=== PATIENT | male | born 1950 | race Caucasian/White ===

== ENCOUNTER 2018-04-03 10:57 | Emergency (ER) | payer MEDICAID ==
[~2018-04-03] VITALS: Ht 165.1 cm; Wt 72.0 kg
[2018-04-03 12:03] LABS: BASOPHILS % 0.4 % (0.0-2.0); EOSINOPHILS % 4.3 % (0.0-5.0); HEMOGLOBIN. 13.7 g/dL (14.0-18.0); LYMPHOCYTES % 15.8 % (20.0-50.0); MEAN CORPUSCULAR VOLUME 91.2 fL (80.0-94.0); MEAN PLATELET VOLUME 7.7 fl (7.4-10.4); MONOCYTES % 5.5 % (2.0-8.0); PLATELET 237 x1000/uL (130-400); RED BLOOD CELL COUNT 4.28 mill/uL (4.7-6.1); RED CELL DISTRIBUTION WIDTH 12.9 % (11.6-14.6)
[2018-04-03 12:05] LABS: CHLORIDE 97 mEq/L (98-107)
[2018-04-03 12:08] LABS: PARTIAL THROMBOPLASTIN TIME 26.6 sec (23.4-31.0); PROTHROMBIN TIME 10.6 sec (9.4-11.6)
[2018-04-03] MEDS ORDERED: ASPIRIN 81MG TABLET PO STA (14:06)
[2018-04-03 15:36] LABS: BASOPHILS % 0.4 % (0.0-2.0); EOSINOPHILS % 3.9 % (0.0-5.0); HEMATOCRIT. 40.6 % (42.0-52.0); HEMOGLOBIN. 14.1 g/dL (14.0-18.0); LYMPHOCYTES % 19.2 % (20.0-50.0); MEAN CORPUSCULAR HEMOGLOBIN 32.1 pg (28.0-32.0); MEAN CORPUSCULAR VOLUME 92.1 fL (80.0-94.0); MEAN PLATELET VOLUME 7.7 fl (7.4-10.4); MONOCYTES % 7.4 % (2.0-8.0); NEUTROPHILS % 69.1 % (40.0-76.0); PLATELET 233 x1000/uL (130-400); RED CELL DISTRIBUTION WIDTH 12.9 % (11.6-14.6)
[2018-04-03 15:39] LABS: CHLORIDE 99 mEq/L (98-107)
[2018-04-03 15:43] LABS: D-DIMER 0.49 mg/L FEU (<0.50); PARTIAL THROMBOPLASTIN TIME 26.8 sec (23.4-31.0); PROTHROMBIN TIME 10.5 sec (9.4-11.6)
[2018-04-03 16:35] LABS: CLARITY URINE CLEAR (CLEAR); COLOR URINE YELLOW (YELLOW); KETONES URINE NEGATIVE (NEGATIVE); LEUKOCYTE ESTERASE URINE NEGATIVE (NEGATIVE); NITRITE URINE NEGATIVE (NEGATIVE); OCCULT BLOOD URINE NEGATIVE (NEGATIVE); PROTEIN URINE NEGATIVE (NEGATIVE); SPECIFIC GRAVITY URINE 1.009 (1.005-1.030); UROBILINOGEN URINE 0.2 E.U./dL (0.2-1.0)
[2018-04-03 22:03] VITALS: BP 126/84
== END 2018-04-03 22:07 | disposition left against medical advice (07) ==
LOC: ER 12:45 → EDBEDREQ 16:38 → CANRESERV 19:31 → ENRESERV 19:31 → ER 22:07 → CANBEDREQ 04-04 01:31
DX: R07.89 Other chest pain (principal); I10 Essential (primary) hypertension
CPT/HCPCS: 36415; 71045; 80053; 81003; 83690; 83880; 84443; 84484; 85025; 85379; 85610; 85730; 93005; 99285; Z7610